=== PATIENT | male | born 1955 | race African-American/Black ===

== ENCOUNTER → 2016-07-16 19:19 | Outpatient (CLI) | payer BC ==
[2012-12-29 06:15] VITALS: BMI 29.2
[~2016-07-16 19:19] MED LIST: BAYER CHEWABLE81 MG PO; CO Q-1050 MG PO; EFFIENT10 MG PO; FLAXSEED OIL1000 MG PO; MULTI-DAY VITAM1 TAB PO; NORVASC10 MG PO; PRAVACHOL40 MG PO; VITAMIN D2000 UNIT PO
== END | disposition home or self-care (01) ==
LOC: D.SLEEP 19:19
DX: G47.30 Sleep apnea, unspecified (principal)

== ENCOUNTER 2017-04-15 05:38 | Emergency (ER) | payer BC ==
[2012-12-29 06:15] VITALS: BMI 29.2
== END 2017-04-15 06:40 | disposition home or self-care (01) ==
LOC: D.ER 05:38
DX: J11.1 Influenza due to unidentified influenza virus with other respiratory manifestations (principal); I10 Essential (primary) hypertension

== ENCOUNTER → 2017-06-04 17:59 | Outpatient (CLI) | payer BC ==
[2012-12-29 06:15] VITALS: BMI 29.2
== END | disposition home or self-care (01) ==
LOC: D.LABREF 17:59
DX: R31.9 Hematuria, unspecified (principal); N39.0 Urinary tract infection, site not specified

== ENCOUNTER → 2017-06-17 09:19 | Outpatient (CLI) | payer BC ==
[2012-12-29 06:15] VITALS: BMI 29.2
== END | disposition home or self-care (01) ==
LOC: D.CT 06-10 15:00
DX: R31.9 Hematuria, unspecified (principal)

== ENCOUNTER 2017-07-15 05:20 | Day surgery (SDC) | payer BC ==
[2017-07-12 12:45] LABS: HEMATOCRIT 46.9 % (42.0-54.0); HEMOGLOBIN 15.8 g/dL (13.5-17.5); MCH 30.1 pg (26.0-34.0); MCHC 33.7 g/dL (31.0-37.0); MCV 89.3 fL (80.0-100.0); MEAN PLATELET VOLUME 10.4 fL (7.4-10.4); RBC 5.25 10x6/uL (4.20-6.10); RDW 13.1 % (11.5-14.5); WBC 5.8 10x3/uL (4.8-10.8)
[~2017-07-15] VITALS: Ht 180.3 cm; Wt 93.4 kg
--- NOTE | ~2017-07-15 | OP ---
PATIENT NAME: ISMAEL FRANCE MEDICAL RECORD: [id number] :53 LOCATION:D.OPS ADMISSION DATE: SURGEON: MAIKEL RODRIGUEZ MD DATE OF OPERATION: 07/15/2017 SURGEON: Maikel Rodriguez MD ANESTHESIA: MAC by Dr. Víctor Naidu. PREOPERATIVE DIAGNOSIS: Microscopic hematuria. POSTOPERATIVE DIAGNOSIS: Microscopic hematuria. PROCEDURE: Cystoscopy. FINDINGS: Obstructive BPH with vascular mucosa. The vascular bladder wall. No bladder tumors and single ureteral orifices bilaterally. BLOOD LOSS: None. CLINICAL HISTORY: This is a 62-year-old male, who had a complaint of microscopic hematuria as well as hematospermia. He has 3 coronary artery stents placed in 2012 and he is on Effient. He has obstructive BPH symptoms and on digital rectal examination, he has an enlarged prostate. On the presumption that his prostate was the source of his hematuria as well as hematospermia, I started him on finasteride and tamsulosin. This has improved his urine flow. Urine cytology is negative. CT scan of the abdomen and pelvis showed no abnormalities. He comes today for cystoscopy. He is not allergic to any medications and he was given Ancef 2 grams IV environmental scientists to the OR. DESCRIPTION OF PROCEDURE: The patient was given IV sedation. He was then placed in the dorsal lithotomy position and prepped and draped. A 17-[place]istani cystoscope with 30-degree lens was used for visualization. The findings are as outlined above. The bladder was then emptied through the scope and the scope was removed. We injected lidocaine jelly into the urethra at the end of the procedure. The patient was then brought to the preoperative holding area and he will be discharged home. TRANSINT:[id number] Voice Confirmation ID: [id number] DOCUMENT ID: [id number] MAIKEL RODRIGUEZ MD at 1239 CC: [id number] DICTATION DATE: 07/15/17 08 ELECTROLYSIST: 07/15/17 0819 [facility] 07/15/[address] [address]
[~2017-07-15 05:20] MED LIST changes: +BENICAR40 MG PO; +COZAAR25 MG PO; +FLOMAX0.4 MG PO; +PROSCAR5 MG PO
[2017-07-15] MEDS ORDERED: FLAXSEED OIL1000 MG (05:51)
[2017-07-15 05:52] VITALS: BP 168/99; Ht 180.3 cm; Wt 93.4 kg
== END 2017-07-15 09:00 | disposition home or self-care (01) ==
LOC: D.OPS 05:20
PROVIDERS: Anesthesiology
DX: N40.1 Benign prostatic hyperplasia with lower urinary tract symptoms (principal); N13.8 Other obstructive and reflux uropathy; R31.29 Other microscopic hematuria; R36.1 Hematospermia; Z95.5 Presence of coronary angioplasty implant and graft; Z79.02 Long term (current) use of antithrombotics/antiplatelets; Z01.812 Encounter for preprocedural laboratory examination